=== PATIENT | female | born 1970 | race Caucasian/White ===

== ENCOUNTER 2016-06-05 08:55 | Day surgery (SDC) | payer OTHER ==
[~2016-06-05 08:55] MED LIST: RINGERS SOLUTION,LACTATED 1,000 ML IV PRN
--- OUTSIDE RECORDS SUMMARY | 2016-06-05 08:58 | XMS REPORT | Continuity of Care Document ---
:1970 Author Organization [facility] ([facility]) Address [address] [place] [address] Phone [phone] Care Team Providers Name Role Phone Gurdeep Araceli Primary Care Provider [phone] Source Comments This disclosure is being made pursuant to the Care Everywhere program, applicable federal and state laws, and may not contain all informaitonavailable regarding this patient.[facility] ([facility]) Active Allergies and Adverse Reactions Allergen Noted Date Severity Reactions Comments Aspirin 06/27/2012 OTHER Bleeding Current Medications Prescription Sig. Disp. Refills Start Date End Date Status multivitamin tablet Take 1 Tab by Active mouth daily. fexofenadine 180 mg Take 1 tablet (180 60 tablet 6 12/10/2014 Active tablet mg total) by mouth daily triamcinolone 0.1 % TID x 4 wks, then 45 g 2 12/10/2014 Active ointment BID x 4 weeks, then HS zinc oxide (DESITIN) Apply topically as Active 13 % topical cream needed. hydrOXYzine HCl 10 mg Take 1 tablet (10 60 tablet 2 03/01/2015 Active tablet mg total) by mouth at bedtime as needed. levonorgestrel-ethinyl Take 1 tablet by 84 tablet 3 08/02/2015 Active estradiol (AVIANE) mouth daily. Take 0.1-0.02 mg per tablet 1 active pill daily to suppress cycles norethindrone Take 1 tablet by 28 tablet 12 11/25/2015 Active (NOR-Q.D.) 0.35 mg mouth daily. tablet hydrocortisone-pramoxi daily 30 g 3 01/10/2016 Active ne (PRAMOSONE) 2.5-1 % topical ointment Active Problems Problem Noted Date Multiple allergies 12/10/2014 Lichen simplex 12/10/2014 Migraines 07/04/2012 Social History Tobacco Use Types Packs/Day Years Used Date Never Smoker Smokeless Tobacco: Never Used Alcohol Use Drinks/Week oz/Week Comments No Last Filed Vital Signs Vital Sign Reading Time Taken Blood Pressure 126/82 11/25/2015 8:33 AM CDT Pulse 84 11/25/2015 8:33 AM CDT Temperature 36.5 C (97.7 F) 06/03/2015 8:23 AM CDT Respiratory Rate 16 07/04/2012 12:14 PM CDT Height 1.651 m (5' 5") 06/03/2015 8:23 AM CDT Weight 78.5 kg (173 lb 1 oz) 11/25/2015 8:33 AM CDT Body Mass Index 28.8 11/25/2015 8:33 AM CDT Oxygen Saturation 98% 07/04/2012 12:14 PM CDT Plan of Care Date Type Specialty Providers Description 06/15/2016 Appointment [facility], Dx: Lichen simplex chronicus (Primary Dx) [address] [place] [address] [phone] (Fax) Health Maintenance Due Date Last Done Comments Hepatitis B Vaccine (1 of 3 - Primary Series) 1970 Tdap Vaccine 01/04/1980 Lipid Disorder Screening 1987 MMR Vaccine 1987 Td Vaccine 1987 Cervical Cancer Screening 1999 Mammogram 2009 Influenza Vaccine: Seasonal (Season Ended) 2016 Results from Last 3 Months Not on file
[2016-06-05 09:24] LABS: Hematocrit 42.2 % (37.0-47.0); Hemoglobin 13.9 gm/dL (12.5-16.0); Mean Cell Volume 84.2 fl (78-100); Mean Corpuscular Hemoglobin 27.7 pg (27-31); Mean Corpuscular Hgb Conc 32.9 g/dl (32-36); Mean Platelet Volume 10.6 fl (6.0-9.5); Neutrophil # 4.5 K/mm3 (1.3-6.0); Platelet Count 243 K/mm3 (150-450); Red Blood Count 5.01 M/mm3 (4.2-5.4); Red Cell Distribution Width 12.8 % (11.5-14.0); White Blood Count 6.9 K/mm3 (4.0-10.5)
[2016-06-05] MEDS ORDERED: RINGERS SOLUTION,LACTATED 1,000 ML IV ONE (09:32)
[2016-06-05] MEDS ORDERED: IBUPROFEN 600 MG TABLET PO PRN (10:46)
[2016-06-05] MEDS ORDERED: oxyCODONE HCL/ACETAMINOPHEN 1 TAB TABLET PO PRN (10:46)
[2016-06-05] MEDS ORDERED: oxyCODONE HCL/ACETAMINOPHEN 1 TAB TABLET PO ONE (11:24)
[2016-06-05 13:10] VITALS: BP 123/74
--- NOTE | 2016-06-05 13:29 | OR ---
Operative Report - Dictated Report Narrative: Operative Report 06/05/16 Hysteroscopy Dilatation and Curettage Preoperative Diagnosis: Menorrhagia Postoperative Diagnosis: Menorrhagia Procedure: Hysteroscopy Dilatation and Curettage Surgeon: Angelita Moseley M.D. Anesthesia: Adolfo Garcia CRNA, IV sedation Findings: Uterine sound was 8 cm. There is no evidence of submucosal fibroid or endometrial polyp. Fluids: 350 ml EBL: Minimal Drains: None Complications: None Condition: Stable Pathology: Endometrial curettings Procedure: The patient was taken to the operating room with IV fluids running. She was placed in the dorsal lithotomy position after anesthesia was induced. A bivalve speculum was placed in the vagina. The anterior lip of the cervix was grasped with a single-tooth tenaculum. Uterine sound was passed into the endometrial cavity with ease. Uterine sound was 8 cm. The cervix was dilated with Benny dilators. The hysteroscope was introduced into the endometrial cavity. The cavity was distended with normal saline. Ost[place] were visualized bilaterally. There was no evidence of submucosal fibroid or endometrial polyp. The hysteroscope was removed. The cavity was sharply curetted without difficulty. The hysteroscope was once again introduced into the cavity. The cavity was completely curetted. The hysteroscope was removed. The single- tooth tenaculum was removed. Sites were hemostatic. The speculum was removed from the vagina. Sponge counts were correct 2. The patient tolerated the procedure well.
== END 2016-06-05 08:56 | disposition home or self-care (01) ==
LOC: AMB 08:55
PROVIDERS: ATTEND Obstetrics & Gynecology
PROC: 0UDB8ZX Extraction of Endometrium, Via Natural or Artificial Opening Endoscopic, Diagnostic (ICD-10-PCS; principal; 2016-06-05 10:05)
DX: N92.0 Excessive and frequent menstruation with regular cycle (principal); Z68.29 Body mass index [BMI] 29.0-29.9, adult

== ENCOUNTER 2016-08-23 09:13 | Observation (INO) | payer OTHER ==
[~2016-08-23 09:13] MED LIST changes: -RINGERS SOLUTION,LACTATED 1,000 ML IV PRN; +ceFAZolin SODIUM 2 GM in DEXTROSE 5 % IN WATER 50 ML IV PRN
[2016-08-23 09:37] LABS: Hematocrit 42.3 % (37.0-47.0); Hemoglobin 14.1 gm/dL (12.5-16.0); Mean Cell Volume 83.8 fl (78-100); Mean Corpuscular Hemoglobin 27.9 pg (27-31); Mean Corpuscular Hgb Conc 33.3 g/dl (32-36); Mean Platelet Volume 10.7 fl (6.0-9.5); Neutrophil # 3.1 K/mm3 (1.3-6.0); Neutrophil % 61.9 % (42-75.0); Platelet Count 265 K/mm3 (150-450); Red Blood Count 5.05 M/mm3 (4.2-5.4)
[2016-08-23] MEDS: RINGER'S SOLUTION,LACTATED 1,000 ML IV PRN (09:47)
[2016-08-23 10:10] LABS: Albumin * 3.9 gm/dl (3.4-5.0); Anion Gap 10.8 mmol/L (6.8-13.8); BUN/Creatinine Ratio 12.9 (9.0-21.6); Bilirubin, Total 0.4 mg/dL (0.0-1.1); Ca. Corrected For Albumin 8.8 mg/dL (8.4-10.2); Carbon Dioxide 28.4 mmol/L (24-32.6); Potassium 4.2 mmol/L (3.4-4.6); Total Protein 7.4 gm/dL (6.2-8.2)
[2016-08-23] MEDS ORDERED: BUPIVACAINE HCL 50 ML VIAL IJ ONE (11:00)
[2016-08-23] MEDS ORDERED: RINGER'S SOLUTION,LACTATED 1,000 ML IV ONE ×3 (12:40→12:42)
[2016-08-23] MEDS ORDERED: IBUPROFEN 800 MG TABLET PO PRN (14:48)
[2016-08-23] MEDS ORDERED: RINGER'S SOLUTION,LACTATED 1,000 ML IV PRN (14:48)
--- NOTE | 2016-08-23 14:48 | OR ---
Operative Report - Dictated Report Narrative: DATE OF PROCEDURE: 08/23/2016 PROCEDURE: 1. Total laparoscopic hysterectomy, bilateral salpingectomy 2. Lysis of adhesion (60 min) 3. Diagnostic cystoscopy. ANESTHESIA: General, endotracheal intubation. PREOPERATIVE DIAGNOSES: 1. Menorrhagia, failed hormonal therapy 2. Enlarged uterus 3. Multiple uterine fibroids 4. Adenomyosis 5. Left ovarian cyst 1.8 cm 6. Vaginal skin tag, suspected 7. Previous c-sections x 2 POSTOPERATIVE DIAGNOSES: 1. Menorrhagia, failed hormonal therapy 2. Enlarged uterus 3. Multiple uterine fibroids 4. Adenomyosis 5. Left ovarian corpus luteal cyst, 1.5 cm 6. Vaginal skin tag, not found 7. Previous c-sections x 2 8. Severe pelvic endometriosis SURGEON: Flora Barrios M.D. SWITCHBOARD CLERK: Phani Briceno Jenna FINDINGS: 1. Enlarged uterus with multiple fibroids. Small left ovarian corpus luteal cyst 1.5 cm, otherwise normal ovaries and fallopian tubes. Narrow vaginal introitus and no vaginal skin tag found. 2. Severe pelvic endometriosis with multiple scar tissues in the posterior cul- de-sac and bilateral uterosacral ligaments. 3. Dense adhesions in prior area in the lower uterine segment. 4. There were some scar tissues in the RLQ and some omental adhesions in the RUQ. 4. On cystoscopy, the bladder appeared intact and bilateral ureteral jets were seen. SPECIMENS: Uterus, cervix, and both tubes (removed in one piece) DRAINS: None. URINE OUTPUT: 200 ml BLOOD LOSS: 100 ml INTRAOPARATIVE IV FLUIDS: 2750 ml COMPLICATIONS: None. DESCRIPTION OF PROCEDURE: The patient consented to the operation and was taken to the operating room. She was placed on the operating table supine. SCDs were placed on her lower extremities. General anesthesia was induced. Two grams of ancef was given by IV prior to anesthesia induction. She was repositioned in the dorsal lithotomy position. Her right arm was tucked at her side under the drape. Exam under anesthesia revealed a narrow vaginal introitus and an enlarged uterus with no adnexal mass. The abdomen was prepped with Chloraprep and the vagina was prepped with Betadine. She was draped in the usual sterile fashion. A time-out procedure was conducted to confirm the correct patient for the correct procedure. After time-out, a Hernandez catheter was placed into the bladder. A bivalve speculum was placed into the vagina. Inspection of the vagina revealed no skin tag. The vagina and the cervix were prepped with Betadine one more time. The anterior cervix was grasped with a single-tooth tenaculum. The uterus was sounded to 10 cm. A large VCare uterine manipulator was inserted into the uterine cavity. The balloon was inflated with 6 cc of air. The single-tooth tenaculum was removed. [place] Bois speculum was removed. The upper VCare cup was advanced into the vagina to hug the cervix. The lower VCare cup was advanced into the vagina to align with the upper VCare cup and to provide pneumoperitoneum for the procedure. The lower VCare cup was fastened to the uterine manipulator. The surgeon then changed gloves and attention was paid to the abdomen. A small vertical incision was made at the upper edge of the umbilicus. A Veress needle was inserted into the abdominal cavity. Intraabdominal placement was confirmed with a saline drop test and with low entry pressure of 0 mmHg. The abdomen was insufflated with CO2 gas to an intraabdominal pressure of 15 mmHg. The Veress needle was removed. A 5 mm trocar with the laparoscope was inserted through the umbilicus incision into the abdomen. Intraabdominal placement was confirmed with the laparoscope. Survey of the entry site revealed no trauma to the underlying structures. The patient was then placed in Trendelenburg position. Three 5 mm trocars were placed in the lower abdomen. The left lower quadrant trocar (5 mm) and right lower quadrant trocars (5 mm) were placed superior and medial to the anterior superior iliac spine to avoid vessels and nerves. A suprapubic trocar (5 mm) was placed in the midline. All trocars were placed under the direct visualization of the laparoscope. Survey of the abdomen and pelvis revealed the findings noted above. Attention was now turned to the left side. The left fallopian tube was elevated. The mesosalpinx was divided with the Thunderbeat. The division was carried to the cornual region. The uteroovarian ligament was divided with the Thunderbeat and the division was carried on the broad ligament through the round ligament towards the lower uterine segment. The course of the left ureter was not identified, but believed to be away from the surgical field. The broad ligament incision was into the anterior leaf and the posterior leaf. Anterior leaf of the broad ligament was dissected towards the bladder uterine reflection. The posterior leaf of the broad ligament was dissected towards the uterosacral ligament. Dense adhesions were encountered near the uterine vessel and in the lower uterine segment. These were dissected carefully. The left uterine vessel was isolated and divided with the Thunderbeat. The lower uterine segment was dissected to free the bladder down. The cardinal ligament complex was divided with the Thunderbeat to the level of vaginal cervical junction. Attention was now turned to the right side. The right fallopian tube was elevated. The mesosalpinx was divided with the Thunderbeat. The division was carried to the cornual region. The uteroovarian ligament was divided with the Thunderbeat and the division was carried on the broad ligament through the round ligament towards the lower uterine segment. The course of the right ureter was identified and protected. The broad ligament incision was into the anterior leaf and the posterior leaf. The anterior leaf of the broad ligament was dissected towards the bladder uterine reflection and to meet with the opposite dissection point at the midline. Again, dense adhesion was lysed carefully here. The posterior leaf of the broad ligament was dissected towards the uterosacral ligament. The right uterine vessel was isolated, and divided with the Thunderbeat. The cardinal ligament complex was divided with the Thunderbeat to the level of vaginal cervical junction. The vaginal fornix was seen well through the VCare cup. The Thunderbeat was used to make an anterior colpotomy over the VCare cup groove. Entry into the vagina was without complications. A circumferential incision was made along the vaginal cervical junction using the VCare cup groove as a guide. Bilateral uterosacral ligament was divided. There was some dense scar here that was lysed. The cervix was completely divided from the vagina. The surgeon moved to the vaginal area to retrieve the specimen. The VCare uterine manipulator was removed. The cervix was grasped with a single tooth tenaculum and the uterus and both tubes were removed through the vagina in one piece. The vagina was packed with 2 moist laps to keep the pneumoperitoneum. The surgeon then changed gloves and attention was paid back to the abdomen. The pelvis was thoroughly irrigated with saline. The vaginal opening was closed transversely with 0 Vicryl Endoknot suture in an interrupted fashion using intracorporeal suturing technique and extracorporeal knot tying. The uterosacral ligament was sutured to the vaginal cuff corner for cuff support. The pelvis was irrigated with saline. Extra fluid was suctioned out from the abdomen and pelvis. There was hemostasis in all vessel pedicles. The patient was taken out of Trendelenburg. Three lower abdominal trocars were removed. The abdomen was deflated. The trocar at the umbilicus was removed with the laparoscope. The skin incision was closed with 4-0 Monocryl suture and was covered with Steri-Strips. The incision was infiltrated with 2 to 3 cc of 0.25% Marcaine for post op pain management. A diagnostic cystoscopy was performed. Vaginal packing was removed and the Hernandez catheter was removed. A 30-degree cystoscope was introduced through the urethra into the bladder. Exam of the bladder revealed the bladder was intact. There were urine jets coming out from the left as well as the right ureteral orifice, confirming the integrity of ureters. The cystoscope was removed. The Hernandez catheter was not replaced. The patient tolerated the procedure well. All counts were correct and the patient was taken to the recovery room in stable condition. Flora Barrios MD
[2016-08-23] MEDS ORDERED: ONDANSETRON HCL/PF 2 MG/ML VIAL IV PRN (14:55)
[2016-08-23] MEDS: HYDROmorphone HCL 1 MG/ML DISP.SYRIN IV ONE ×2 (15:07→19:40)
[2016-08-23] MEDS: HYDROcodone/ACETAMINOPHEN 1 EACH TABLET PO PRN ×2 (16:15→22:02)
[2016-08-23] MEDS ORDERED: HYDROmorphone HCL 1 MG/ML DISP.SYRIN IV PRN (16:54)
--- NOTE | 2016-08-23 17:10 | PN ---
Subjective - Date and Time Seen Date: 08/23/16 Subjective Narrative: Post op check Patient is still in a lot of pain in the abdomen diffusely despite oral pain medications. Rated her pain 10/10. Tolerated a bit of a cracker. Has not been up or voided yet. BP 88/50, 102/47, P 82, O2 sat 99%. Exam: appeared in pain and holding her abdomen. Breathing non-labor Abdomen: non-distended, soft, mildly tender diffusely. Ext: no calf tenderness. A: s/p TLH, BS, ADAM and cystoscopy with uncontrolled pain and low BP. Plan: will keep her overnight for observation and pain control. watch urine output. if BP persistently low, consider CBC. Flora Barrios MD Objective - Vitals Vitals: Last Vital Signs Temp 37.5 C 08/23/16 15:20 Pulse 78 08/23/16 16:30 Resp 16 08/23/16 16:30 BP 88/50 08/23/16 16:30 Pulse Ox 99 08/23/16 16:30 - Abnormal Lab Findings Abnormal Lab Findings: Abnormal Lab Results 08/23/16 Range/Units 09:30 MPV 10.7 H (6.0-9.5) fl Lymphocytes # 1.4 L (1.5-3.5) k/mm3
[2016-08-23] MEDS ORDERED: HYDROmorphone HCL 1 MG/ML DISP.SYRIN IV ONE ×2 (17:12→17:30)
[2016-08-24] MEDS ORDERED: HYDROcodone/ACETAMINOPHEN 1 EACH TABLET ONE (01:07)
[2016-08-24] MEDS: RINGER'S SOLUTION,LACTATED 1,000 ML IV PRN (01:18)
[2016-08-24] MEDS: HYDROcodone/ACETAMINOPHEN 1 EACH TABLET PO PRN ×4 (01:18→10:53)
[2016-08-24] MEDS ORDERED: HYDROcodone/ACETAMINOPHEN 1 EACH TABLET PO PRN (01:21)
--- NOTE | 2016-08-24 09:04 | DS ---
(1) Status post laparoscopic hysterectomy Problem: Acute (2) Status post bilateral salpingectomy Problem: Acute (3) Menorrhagia Problem: Acute (4) Fibroid uterus Problem: Acute (5) Endometriosis of pelvis Problem: Acute (6) Previous section Problem: Acute Description of Stay: Patient is post op day 1 from [facility], , ADAM and cystoscopy. She was admitted overnight for pain control and low BP. She is doing much better today. Her pain is mild and she is taking oral pain medications with good control. has voided good amount overnight. ambulating and tolerating her diet. Vitals stable Exam: NAD Breathing non-labored. Abdomen: non-distended, soft, non-tender. Incision: dry and clean. Extremities: no edema or calf tenderness. Plan: will discharge home today. Procedures Performed: see notes below - total laparoscopy hysterectomy, bilateral salpingectomy, lysis of adhesion and cystoscopy Discharge Disposition: Home self care Disposition: Home self-care Condition: Good Discharge Activity: Activity as tolerated, No Lifting Discharge Diet: General/regular food Referrals: Araceli Mackenzie MD [Primary Care Provider] - Problem Oriented Discharge Instructions to Patient/Family: Total Laparoscopic Hysterectomy, Care After Additional Patient Instructions (free text): Please follow up with Dr. Barrios on August 30, 2016 at 1:[address] Barrios's office at [phone] if you have any questions or concerns. Complete Home Medications List: Complete Home Medication List: Cyclobenzaprine HCl [Flexeril] 10 mg PO TID PRN 05/30/16 Loratadine [Claritin] 10 mg PO DAILY PRN 05/30/16 Multivitamins [Multivitamin Rosa Maria] 1 cap PO DAILY 05/30/16 Tramasone Cream 1 applic TP DAILY 08/07/16 HYDROcodone/ACETAMINOPHEN [Remlap 5-325 Tablet] 1 tab PO Q4H PRN #30 tab Ibuprofen [Motrin] 800 mg PO Q8H PRN #30 tablet 08/23/16 Ondansetron HCl [Zofran] 1 tab PO Q4H PRN #15 tablet 08/23/16
[2016-08-24 09:56] VITALS: BP 105/67
== END 2016-08-24 11:46 | disposition home or self-care (01) ==
LOC: AMB 09:13 → MS 17:02
PROVIDERS: ADMIT Obstetrics & Gynecology; ATTEND Obstetrics & Gynecology
PROC: 0UB74ZZ Excision of Bilateral Fallopian Tubes, Percutaneous Endoscopic Approach (ICD-10-PCS; 2016-08-23)
PROC: 0UN94ZZ Release Uterus, Percutaneous Endoscopic Approach (ICD-10-PCS; 2016-08-23)
PROC: 0UT94ZZ Resection of Uterus, Percutaneous Endoscopic Approach (ICD-10-PCS; principal; 2016-08-23 10:00)
PROC: 0UTC4ZZ Resection of Cervix, Percutaneous Endoscopic Approach (ICD-10-PCS; 2016-08-23 10:00)
DX: N92.0 Excessive and frequent menstruation with regular cycle (principal); D25.1 Intramural leiomyoma of uterus; N80.0 Endometriosis of uterus; N83.202 Unspecified ovarian cyst, left side; N80.3 Endometriosis of pelvic peritoneum
CPT/HCPCS: 36415; 58571; 80053; 84703; 85025; 86850; 86900; 88307; G0378